=== PATIENT | female | born 1965 | race Caucasian/White ===

== ENCOUNTER 2018-07-14 12:36 | Emergency (ER) | payer OTHER, SELFPAY ==
[2018-07-14 12:44] VITALS: O2SAT 98
--- NOTE | 2018-07-14 12:48 | C.PDOC ---
History Of Present Illness 53 year old female presents to ED with complaint of left ankle pain. Patient states when she was at home she slipped and rolled her ankle. Patient states that she is able to limp on it. She noted pain specifically to the ball of the left lateral ankle. Patient has a PMHx of diabetes. Patient denies foot pain, knee pain, hip pain, falling on her head, chest, or hip, and denies rash. - HPI Time Seen by Provider: 07/14/18 12:48 Chief Complaint (Nursing): Trauma History Per: Patient History/Exam Limitations: no limitations Onset/Duration Of Symptoms: Hrs Location Of Injury: Left: Ankle - Fall Fall:Prior To Injury: Slipped Past Medical History Reviewed: Historical Data, Nursing Documentation, Vital Signs Vital Signs: Last Vital Signs Temp 98.5 F 07/14/18 12:40 Pulse 104 H 07/14/18 12:40 Resp 20 07/14/18 12:40 BP 143/80 07/14/18 12:40 Pulse Ox 98 07/14/18 12:40 - Medical History PMH: Arthritis, Asthma, Diabetes Surgical History: Family History: States: Unknown Family Hx - Social History Hx Tobacco Use: No Hx Alcohol Use: No Hx Substance Use: No - Immunization History Hx Tetanus Toxoid Vaccination: No Hx Influenza Vaccination: No Hx Pneumococcal Vaccination: No Review Of Systems Constitutional: Negative for: Fever, Chills, Weakness Cardiovascular: Negative for: Chest Pain Gastrointestinal: Negative for: Abdominal Pain Musculoskeletal: Positive for: Other (left ankle pain). Negative for: Back Pain Skin: Negative for: Rash Neurological: Negative for: Weakness, Numbness, Dizziness Physical Exam - Physical Exam Appears: Non-toxic, No Acute Distress Skin: Normal Color, Warm, Dry Head: Normacephalic Eye(s): bilateral: Normal Inspection, PERRL, EOMI Neck: Trachea Midline, Supple, No Other (meningeal signs) Chest: Symmetrical Cardiovascular: Rhythm Regular, No Friction Rub Respiratory: No Rales, No Rhonchi, No Wheezing Gastrointestinal/Abdominal: No Tenderness, No Distention Extremity: Tenderness (left lateral malleolar), Swelling (left lateral malleolar), Other (neurovascular intact) Pulses: Left Dorsalis Pedis: Normal, Right Dorsalis Pedis: Normal Neurological/Psych: Oriented x3 Gait: Unsteady (limping) ED Course And Treatment O2 Sat by Pulse Oximetry: 98 (in RA) Medical Decision Making Medical Decision Making: Impression: 53 year old with left ankle pain. +tolowa dee-ni' ankle L. Negative Dixon foot. No indication for foot imaging. N/V intact. No crepitus or erythema noted. Likely sprain vs fx. Plan: Patient given Motrin PO Left ankle X-ray ordered for patient. Differential Dx: Sprain versus fracture Xray ankle largely unremarkable. Pt eval for crutches. Pt notes she will take motrin / tylenol as directed on the bottle at home. Remains N/V intact. Endorsed need to follow up with Ortho and PMD regarding repeat imaging. She is agreeable to plan. Disposition - Disposition Referrals: Obi Owen MD [Staff Provider] - Geronimo Davis III, MD [Staff Provider] - [facility] [Outside] [facility] [Outside] [facility] [Outside] Disposition: HOME/ ROUTINE Disposition Time: 14:53 Condition: GOOD Additional Instructions: TIFFANY DEAN, thank you for letting us take care of you today. Your provider was Tru Ho and you were treated for FALL/LT SIDE PAIN. The emergency medical care you received today was directed at your acute symptoms. If you were prescribed any medication, please fill it and take as directed. It may take several days for your symptoms to resolve. Return to the Emergency Department if your symptoms worsen, do not improve, or if you have any other problems. Please contact your doctor or call one of the physicians/clinics you have been referred to that are listed on the Patient Visit Information form that is included in your discharge packet. Bring any paperwork you were given at discharge with you along with any medications you are taking to your follow up visit. Our treatment cannot replace ongoing medical care by a primary care provider outside of the emergency department. Thank you for allowing the [facility] team to be part of your care today. If you had an X-Ray or CT scan: A Radiologist will review the ED reading if any change in treatment is needed we will contact you. If you had a blood, urine, or wound culture: It will take several days for the results, if any change in treatment is needed we will contact you. If you had an STI test: It will take 48 hours for the results. Please call after 1 week if you have not heard back. Instructions: Ankle Sprain (DC), Sprain (DC), Preventing Falls in the Older Adult Forms: [facility] (Latvian) - Clinical Impression Clinical Impression: Ankle sprain, Fall - Scribe Statement The provider has reviewed the documentation as recorded by the Scribe (Miranda Amezquita) All medical record entries made by the Scribe were at my direction and personally dictated by me. I have reviewed the chart and agree that the record accurately reflects my personal performance of the history, physical exam, medical decision making, and the department course for this patient. I have also personally directed, reviewed, and agree with the discharge instructions and disposition.
--- NOTE | 2018-07-14 14:24 | RAD ---
PROCEDURE: Left Ankle Radiographs. HISTORY: fall, L lateral malleolar tenderness COMPARISON: None available FINDINGS: BONES: No acute displaced fracture. Calcaneal enthesophyte. JOINTS: No dislocation. SOFT TISSUES: Mild soft tissue swelling. No evidence of radiopaque foreign body. OTHER FINDINGS: None. IMPRESSION: Mild soft tissue swelling. No acute displaced fracture, dislocation, or significant joint effusion identified. If symptoms persist or if there is clinical concern, x-ray follow-up in 7-10 days should be considered.
[2018-07-14 14:56] VITALS: BP 131/78; PULSE 94; RESP 16; TEMP 98.7
== END 2018-07-14 15:49 | disposition home or self-care (01) ==
LOC: C.ER 12:36
DX: S93.402A Sprain of unspecified ligament of left ankle, initial encounter (principal); W01.0XXA Fall on same level from slipping, tripping and stumbling without subsequent striking against object, initial encounter; Y92.009 Unspecified place in unspecified non-institutional (private) residence as the place of occurrence of the external cause
CPT/HCPCS: 73610; 97116; 97161; 99285; G8978; G8979; G8980